=== PATIENT | female | born 1995 | race Caucasian/White ===

== ENCOUNTER 2023-09-05 22:13 | Emergency (ER) | payer OTHER ==
[2023-09-05 22:36] VITALS: PULSE 74; RESP 18; TEMP 98; BMI 23.3
[2023-09-05 22:39] LABS: HEMATOCRIT 39.2 % (32.4-45.2); HEMOGLOBIN 12.9 G/dL (10.7-15.3); MCH 29.7 pg (25.7-33.7); MCHC 32.9 g/dl (32.0-36.0); MEAN CELL VOLUME 90.4 fl (80-96); MEAN PLT VOLUME 8.7 fl (7.5-11.1); PLATELET COUNT 231.6 10^3/uL (134-434); RBC 4.34 10^6/uL (3.60-5.2); RDW 14.3 % (11.6-15.6); WHITE BLOOD COUNT 6.3 10^3/uL (4.0-10.8)
[2023-09-05 23:02] LABS: ALBUMIN 4.5 g/dl (3.4-5.0); BILIRUBIN,TOTAL 0.4 mg/dl (0.2-1); CALCIUM 9.6 mg/dl (8.5-10.1); CREATININE 0.7 mg/dl (0.6-1.3); POTASSIUM 3.2 mmol/L (3.5-5.1); TOT PROT 6.4 g/dl (6.4-8.2)
[2023-09-06 00:33] VITALS: BP 94/60
== END 2023-09-06 01:02 | disposition home or self-care (01) ==
LOC: FER 22:13
DX: O03.9 Complete or unspecified spontaneous abortion without complication (principal)
CPT/HCPCS: 36415; 76801-TC; 80053; 84702; 85027; 88305-TC; 99284-25